=== PATIENT | male | born 1975 | race Hispanic/Latino ===

== ENCOUNTER 2020-06-22 21:49 | Emergency (ER) | payer SELFPAY ==
[~2020-06-22] VITALS: Ht 170.2 cm; Wt 72.6 kg
[2020-06-22] MEDS ORDERED: HYDROCODON-ACE1 EAC9 PO (22:29)
[2020-06-22] MEDS ORDERED: LIDOCAINE VISC 2% SOLN 15 ML UDC PO ONE (22:30)
[2020-06-22] MEDS ORDERED: HYDROCODONE/APAP 10MG-325MG TAB PO ONE (22:30)
[2020-06-22] MEDS ORDERED: HYDROCODONE/APAP 10MG-325MG TAB ONE (22:34)
== END 2020-06-22 23:20 | disposition home or self-care (01) ==
LOC: ER 22:23
DX: R55 Syncope and collapse (principal); E78.5 Hyperlipidemia, unspecified
CPT/HCPCS: 99283